=== PATIENT | female | born 1990 | race Caucasian/White ===

== ENCOUNTER 2017-07-07 04:04 | Inpatient (IN) | payer MEDICAID, OTHER, SELFPAY ==
[2017-07-07] MEDS ORDERED: CARBOPROST TROME 250 MCG/ML IM PRN (04:05)
[2017-07-07] MEDS ORDERED: MIDAZOLAM HCL 2 MG/2 ML INJ IV PRN (04:05)
[2017-07-07] MEDS ORDERED: MEPERIDINE HCL 25 MG/0.5 ML IV PRN (04:05)
[2017-07-07] MEDS ORDERED: Ringers Lactate 1,000 ML IV PRN (04:05)
[2017-07-07] MEDS ORDERED: PROMETHAZINE 25 MG/ML VIAL IM PRN (04:05)
[2017-07-07] MEDS ORDERED: BUTORPHANOL 1 MG/ML INJ IV PRN (04:05)
[2017-07-07] MEDS ORDERED: METHYLERGONOVINE 0.2MG/ML AMP IM PRN (04:05)
[2017-07-07] MEDS ORDERED: Ringers Lactate 1,000 ML IV SCH (05:00)
[2017-07-07] MEDS ORDERED: OXYTOCIN/LR 20 UNITS/1,000 ML BAG IV SCH (05:00)
[2017-07-07 05:10] LABS: RPR Titer ND
[2017-07-07 05:23] LABS: Absolute Lymphocytes (CBC) 2.2 K/uL (0.7-4.9); Absolute Monocytes 0.4 K/uL (0.1-1.3); Absolute Neutrophil 5.5 K/uL (1.8-8.0); Basophils % 0.2 % (0-1.3); Eosinophils % 0.8 % (0-4.4); Hematocrit 34.5 % (36.0-45.0); Lymphocytes % 26.9 % (15.3-44.8); MCH 31.2 pg (27.0-35.0); MCV 92.3 fL (80-100); MPV 7.9 fL (7.6-11.3); Monocytes % 5.2 % (3.3-12.3); RBC Red Blood Cell Count 3.74 M/uL (3.86-4.86)
[2017-07-07 05:36] VITALS: BMI 21.9
[2017-07-07 05:39] LABS: Urine Appearance CLOUDY; Urine Bilirubin NEGATIVE (NEG); Urine Blood 1+ (NEG); Urine Color YELLOW; Urine Glucose NEGATIVE (NEG); Urine Protein NEGATIVE (NEG); Urine Urobilinogen 0.2 mg/dL (0.2-1.0)
[2017-07-07 05:42] LABS: Urine Microscopic Reflex ORDER UMIC
[2017-07-07 06:11] LABS: Urine Bacteria >50 /HPF (<20); Urine Culture Reflex Order NOT NEEDED; Urine RBC <5 /HPF (NONE SEEN)
[2017-07-07] MEDS ORDERED: FENTANYL CITR 100 MCG/2 ML IV ONE (10:12)
[2017-07-07] MEDS ORDERED: ROPIVACAINE HCL 100 ML IV PRN (10:13)
[2017-07-07] MEDS ORDERED: ROPIVACAINE HCL 0.2% 20ML AMP SQ ONE (10:15)
[2017-07-07] MEDS ORDERED: ROPIVACAINE HCL 20 ML ONE (10:17)
[2017-07-07] MEDS ORDERED: ROPIVACAINE HCL 100 ML IV ONE (10:18)
--- NOTE | 2017-07-07 10:51 | PREOPHP ---
Date of Admission: 07/07/2017 A 27-year-old, 2, para 1, 39 weeks and 1 day, 2.5 to 3 cm vertex, -1 station. Rupture of mem branes, clear fluid. Admission talk given. Rh positive, immune to Rubella. Negative beta strep scr een. Anticipate delivery sometime later today. The patient plans natural childbirth. She knows she can change her mind if she chooses. Had epidural with first delivery. [place] Voice ID: [id number]
[2017-07-07] MEDS ORDERED: Oxycodone HCl/Acetaminophen 1 TAB TAB PO PRN (12:22)
[2017-07-07] MEDS ORDERED: DIPHENHYDRAMINE 25 MG TAB/CAP PO PRN (12:22)
[2017-07-07] MEDS ORDERED: ACETAMINOPHEN 500 MG TAB PO PRN (12:22)
[2017-07-07] MEDS ORDERED: DOCUSATE NA/SENNA CONC 1 TAB PO PRN (12:22)
[2017-07-07] MEDS ORDERED: BISACODYL 10 MG RECTAL SUPP RECT PRN (12:22)
[2017-07-07] MEDS ORDERED: OXYTOCIN/LR 20 UNIT/1,000 ML BAG IV SCH (13:00)
--- NOTE | 2017-07-07 13:30 | OP ---
Surgeon: Toby Norris MD Indication And Procedure: A 27-year-old, 2, para 1, 39 weeks 1 day, 2.5 cm on admission. Ru pture of membranes, clear fluid. The patient went to an active labor pattern. Received epidural ane sthesia, which gave excellent effect during remainder of labor and delivery. Second stage of 10 to 1 5 minutes or less. Spontaneous vaginal delivery of an estimated 7-pound plus female, Apgars 9 and 9. No episiotomy. No lacerations. Schultze delivery of the placenta was inspected and noted to be in tact and normal. Less than 300 cc blood loss. Rh positive, immune to Rubella. Negative beta strep screen. Tolerated all procedures well. Final Diagnoses: Term intrauterine at 39 weeks 1 day, vaginal delivery, epidural anesthesi a. [place] Voice ID: [id number] Report ID: [id number]
[2017-07-07 22:20] LABS: RPR (Rapid Plasma Reagin) NON-REACT (NON-REACT)
[2017-07-08] MEDS: IBUPROFEN 200 MG TAB PO PRN ×2 (00:20→07:20)
[2017-07-08] MEDS: Oxycodone HCl/Acetaminophen 1 TAB TAB PO PRN ×2 (04:30→11:43)
--- NOTE | 2017-07-08 10:52 | DS ---
Hospital Course: A 27-year-old, 2, para 1, 39 weeks and 1 day, delivered of a 7-pound plus f emale, Apgars 9 and 9. No episiotomy. No laceration. Schultze delivery of the placenta, which was inspected and noted to be intact and normal. Less than 300 cc blood loss. Epidural anesthesia. Rh positive, immune to Rubella. Negative beta strep screen. afebrile, ambulating and voidin g. Lochia is normal. Will be dismissed later today to report back to my office in 6 weeks for follo wup, to report any temperature elevation of 100 degrees or greater, severe pain, heavy bleeding, or a ny other type of abnormalities. Dismissed with tramadol for discomfort, although she may decide to t lilia Motrin instead. We only gave her 10 pills, 50 mg. No post epidural problems. Final Diagnoses: Term intrauterine at 39 weeks and 1 day, vaginal delivery, epidural anest hesia. [place] Voice ID: [id number] Report ID: [id number]
[2017-07-08 12:44] VITALS: BP 117/69; TEMP 97.7
[2017-07-09 20:11] LABS: HBsAG Nonreactive (Nonreactive)
== END 2017-07-08 13:30 | disposition home or self-care (01) | DRG 775 ==
LOC: 2ND-WC 04:04
PROVIDERS: ADMIT Specialist; ATTEND Specialist
PROC: 10E0XZZ Delivery of Products of Conception, External Approach (ICD-10-PCS; principal; 2017-07-07)
PROC: 10907ZC Drainage of Amniotic Fluid, Therapeutic from Products of Conception, Via Natural or Artificial Opening (ICD-10-PCS; 2017-07-07)
DX: O80 Encounter for full-term uncomplicated delivery (principal); Z3A.39 39 weeks gestation of pregnancy; Z37.0 Single live birth
CPT/HCPCS: 36415; 81003; 81015; 85025; 86592; 86901; 87340; J0595; J2590; J2795; J3010